=== PATIENT | female | born 1955 | race Caucasian/White ===

== ENCOUNTER → 2018-09-30 07:39 | Outpatient (CLI) | payer OTHER, SELFPAY ==
[2018-09-30 09:33] LABS: Cholesterol 251 mg/dL (140-199); HDL Cholesterol 83 mg/dL (40-60); LDL Cholesterol Calculated 156 mg/dL (<100); Triglycerides 59 mg/dL (35-150)
== END ==
DX: Z78.0 Asymptomatic menopausal state (principal)
CPT/HCPCS: 36415; 80061

== ENCOUNTER → 2018-11-11 12:10 | Outpatient (CLI) | payer OTHER, SELFPAY ==
--- NOTE | 2018-11-11 12:11 | DI.US.S_ITS ---
LIMITED ULTRASOUND OF RIGHT BREAST AND AXILLA: 11/11/2018 CLINICAL: Follow-up MRI of 11-01-18 ([facility]). Known rt breast cancer. Comparison is made to exams dated: 11/01/2018 breast MRI, 10/18/2018 ultrasound biopsy, 10/18/2018 ultrasound, 10/18/2018 mammogram, and 10/18/2018 mammogram - [facility]. Color flow and real-time ultrasound of the right breast upper outer quadrant and axilla regions were performed on the areas of interest. There is 1.5 cm x 1 cm x 1.2 cm oval mass with an indistinct margin in the right breast at 10 o'clock posterior depth. This oval mass is hypoechoic with posterior acoustic shadowing. This correlates with breast MRI finding of an enhancing mass posterior and lateral to the biopsy proven carcinoma. Color flow imaging demonstrates that there is an adjacent vascularity. There also is 0.7 cm x 0.6 cm x 0.4 cm oval complicated cyst with a septated internal wall in the right breast at 1 o'clock in the retroareolar region. This oval complicated cyst is anechoic with posterior acoustic enhancement. Color flow imaging demonstrates that there is no vascularity present. Additionally, there are 2 small benign appearing oval normal lymph nodes in the right axilla. These demonstrate preserved fatty michelle with no focal cortical thickening. Color flow imaging demonstrates that there is no increase in vascularity. IMPRESSION: HIGHLY SUGGESTIVE OF MALIGNANCY The 1.5 cm x 1 cm x 1.2 cm oval mass in the right breast at 10 o'clock posterior depth is highly suggestive of malignancy. A biopsy based on clinical assessment is recommended. The 0.7 cm x 0.6 cm x 0.4 cm oval complicated cyst in the right breast at 1 o'clock in the retroareolar region is consistent with a complicated cyst and is probably benign. A followup ultrasound may be performed in 6 months to demonstrate stability if clinically indicated. The 2 oval lymph nodes in the right axilla are normal in size and appear benign. This exam was interpreted at Station ID: [id number]. Electronically Signed By: Trevin Stark M.D. ddp/:11/11/2018 13:24:22 letter sent: Biopsy Required Ultrasound BI-RADS: 5 Highly suggestive of malignancy
== END ==
PROVIDERS: Visit Provider Specialist
DX: C50.411 Malignant neoplasm of upper-outer quadrant of right female breast (principal); N60.01 Solitary cyst of right breast
CPT/HCPCS: 76642

== ENCOUNTER → 2018-11-30 08:40 | Outpatient (CLI) | payer OTHER, SELFPAY ==
--- NOTE | 2018-11-30 | PATH_ITS ---
[facility] Accession Number: [id number] . 01 Material submitted: . breast - RIGHT BREAST 10:00 4 CM FROM NIPPLE . 01 Clinical history: . RIGHT BREAST CANCER . 01 Diagnosis: Right Breast, 10 o'clock, 4 cm from Nipple, Core Needle Biopsies: Benign breast parenchyma with stromal fibrosis. Rare microcalcifications associated with benign parenchyma. Negative for atypical hyperplasia, in situ or invasive carcinoma. Additional step sections examined. MRV/12/03/2018 . 01 Comment: As part of routine quality improvement coordinator (rn), Dr. Dozier has reviewed this case and agrees with the above diagnosis. . 01 Electronically signed: . Avery Pretty MD, PhD, Pathologist NPI- [id number] . 01 Gross description: . Received one formalin-filled container labeled with the patient's name and designated right breast 10 o'clock 4 cm from nipple. Specimen received with a plastic filter in container, sample loose in container and consists of multiple light mandujano-white portions of tissue which range in size from 0.2 cm to 0.3 cm. The specimen is entirely submitted in one cassette. Collection date: 11/30/2018. Collection time per container: 10:17 AM. Total fixation time: 12 hours, up to 24. ([id number]) /FRR . 01 Pathologist provided ICD-10: N63.11 . 01 CPT . 657162 Performed at: [address] [id number] MD Trevin Nelson MD Phone: [phone]
--- NOTE | 2018-11-30 | DI.MG.S_ITS ---
UNILATERAL RIGHT DIGITAL DIAGNOSTIC MAMMOGRAM POST-NEEDLE BIOPSY: 11/30/2018 CLINICAL: Right breast cancer. Comparison is made to exams dated: 11/11/2018 ultrasound [facility], 11/01/2018 breast MRI, 10/18/2018 ultrasound, and 10/18/2018 mammogram - [facility]. The tissue of right breast is predominantly fatty. There is a marker clip in the appropriate position in the right breast at 10 o'clock posterior depth. This marker clip placement is at the biopsy site. IMPRESSION: POST PROCEDURE MAMMOGRAM FOR MARKER PLACEMENT There was a successful marker clip placement in the right breast posterior depth. This exam was interpreted at Station ID: [id number]. NOTE: For mammograms, a report in lay terms will be sent to the patient. Approximately 15% of breast malignancies will not be visualized mammographically. In the management of a palpable breast mass, a negative mammogram must not discourage biopsy of a clinically suspicious lesion. Electronically Signed By: Javier hannon/:11/30/2018 17:33:41 ACR BI-RADS Category Post-procedure mammogram for marker placement
--- NOTE | 2018-11-30 08:44 | DI.US.S_ITS ---
ULTRASOUND GUIDED BIOPSY RIGHT BREAST USING VACUUM DEVICE WITH MARKING DEVICE INSERTED: 11/30/2018 PATIENT CONSENT: Risks (minor bleeding, infection, vasovagal reaction and repeat procedure), benefits and alternatives were explained to the patient and written informed consent was obtained. Correlation is made to exams dated: 11/11/2018 [facility] - [facility], 11/01/2018 breast MRI, 10/18/2018 ultrasound biopsy, 10/18/2018 mammogram, and 10/18/2018 mammogram - [facility]. An ultrasound guided biopsy using real-time ultrasound was performed for the irregular shaped mass located in the right breast at 10 o'clock posterior depth. The skin was prepped in the usual manner. Local anesthetic was administered to the access site. A small incision was made in the breast. The abnormality was approached from the lateral aspect. A biopsy needle was placed adjacent to the abnormality under ultrasound guidance. Once the needle was documented to be in the correct location, six specimens were obtained using the Mammotome biopsy system. The patient received additional local anesthetic during the procedure. A clip was inserted into the biopsy cavity. The specimens were sent to the laboratory for pathological analysis. IMPRESSION: ULTRASOUND GUIDED BIOPSY BENIGN Ultrasound guided biopsy of the mass in the right breast at 10 o'clock posterior depth was successful. Pathology indicates benign stromal fibrosis with calcifications present. Pathology results are discordant with imaging findings based on previously biopsied malignancy of the adjacent index mass at the 10 o'clock position. Review of the biopsy images showed appropriate sampling of the suspicious mass of concern at the 10 o'clock position, 4 cm from the nipple. A surgical/oncologic consultation is recommended. A follow-up right ultrasound in 6 months is recommended to demonstrate stability of a separate, probably benign retroareolar right breast complicated cyst. This exam was interpreted at Station ID: [id number]. Javier hannon,aty/:12/09/2018 18:39:20
== END ==
PROVIDERS: Visit Provider Specialist
DX: C50.411 Malignant neoplasm of upper-outer quadrant of right female breast (principal); N63.11 Unspecified lump in the right breast, upper outer quadrant; N60.31 Fibrosclerosis of right breast; N60.01 Solitary cyst of right breast
CPT/HCPCS: 19083; 77065